=== PATIENT | male | born 1995 | race Hispanic/Latino ===

== ENCOUNTER 2020-06-22 06:33 | Emergency (ER) | payer SELFPAY ==
[2020-06-22] MEDS ORDERED: Dexamethasone 4 MG TAB ONE (07:25)
[2020-06-22 13:07] LABS: SARS-CoV-2 MS2 Positive; SARS-CoV-2 N Gene Positive; SARS-CoV-2 S Gene Positive; SARS-CoV-2 by NAA DETECTED (NotDetected); SARS-CoV-2 orf1ab Positive
== END 2020-06-22 07:40 | disposition home or self-care (01) ==
LOC: ERS 06:33
DX: U07.1 COVID-19 (principal); J02.8 Acute pharyngitis due to other specified organisms; F17.210 Nicotine dependence, cigarettes, uncomplicated
CPT/HCPCS: 87635; 99283; J8540; U0003